=== PATIENT | female | born 1965 | race Caucasian/White ===

== ENCOUNTER 2017-02-28 01:52 | Emergency (ER) | payer BC, OTHER ==
[2017-02-28 01:59] VITALS: BP 107/68
[2017-02-28] MEDS ORDERED: Lidocaine 1% 20 ML MDV ONE (02:45)
[2017-02-28] MEDS ORDERED: Lidocaine 1% 30 ML SDV INJECT ONE (03:00)
[2017-02-28] MEDS ORDERED: cefTRIAXone 1 GM Vial IVPUSH ONE (03:49)
[2017-02-28] MEDS ORDERED: Diphtheria,Pertussis(Acell),Tetanus Vaccine 0.5 ML Syringe IM ONE (03:50)
--- NOTE | 2017-02-28 03:59 | EDM.PDOC ---
ED HPI GENERAL MEDICAL PROBLEM - General Chief Complaint: Trauma Stated Complaint: FALL APPROX 4FT Time Seen by Provider: 02/28/17 02:36 Source of Information: Reports: Patient History Limitations: Reports: No Limitations - History of Present Illness INITIAL COMMENTS - FREE TEXT/NARRATIVE: VICTOR MANUEL IS A 51 YO FEMALE WHO PRESENTS TO THE ER WITH COMPLAINTS OF NASAL TRAUMA. SHE STATES AROUND 1 OCLOCK THIS MORNING SHE WAS PAINTING IN A RENTAL HOUSE AND SLIPPED ON THE STEPS. SHE FELL FORWARD AND FELL 3-4 STEPS LANDING ON TO HER NOSE. DENIES ANY LOC. STATES SHE DID NOT HIT HER HEAD AND ALL THE TRAUMA WAS TO HER MOUTH AND FACE. STATES SHE FEELS A LARGE FLAP LIKE LACERATION TO THE INSIDE OF HER LOWER LIP. ADMITS TO ALCOHOL INTAKE 5-6 BEERS THIS EVENING WHILE PAINTING. HOWEVER, STATES THE CAUSE OF FALL WAS SECONDARY TO THE STEPS AND ADMITS THEY SHOULD HAVE BEEN FIXED AWHILE AGO. GCS 15 Severity: Moderate Improves with: Reports: Immobilization, Rest Worsens with: Reports: Movement Context: Reports: Other (FALL) Associated Symptoms: Denies: Confusion, Headaches Oral/Mouth Pain Score (Numeric/FACES): 8 Nose Pain Score (Numeric/FACES): 10 - Related Data Allergies Allergy/AdvReac Type Severity Reaction Status Date / Time caffeine Allergy Other Verified 02/28/17 01:53 Home Meds: Home Meds Ascorbic Acid [Vitamin C] 1,000 mg PO DAILY 02/28/17 [History] Biotin 1 tab PO DAILY 02/28/17 [History] Calcium Carbonate [Calcium] 500 mg PO DAILY 02/28/17 [History] Multivitamin [Multivitamins] 1 cap PO DAILY 02/28/17 [History] Vitamin E 1 cap PO DAILY 02/28/17 [History] Past Medical History HEENT History: Reports: Impaired 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: Musculoskeletal History: Reports: Fracture, Other (See Below) Other Musculoskeletal History: COLLAR BONE, FINGER, TOE, FOOT FXS - Past Surgical History HEENT Surgical History: Reports: Visual Female Surgical History: Reports: Section Social & Family History - Tobacco Use Smoking Status *Q: Current Every Day Smoker Years of Tobacco use: 30 Packs/Tins Daily: 1 - Caffeine Use Caffeine Use: Reports: None - Alcohol Use Days Per Week of Alcohol Use: 5 Number of Drinks Per Day: 4 Total Drinks Per Week: 20 - Recreational Drug Use Recreational Drug Use: No Review of Systems - Review of Systems Review Of Systems: See Below Constitutional: Reports: No Symptoms Eyes: Reports: No Symptoms Ears: Reports: No Symptoms Nose: Reports: Pain (CUTS TO NOSE) Mouth/Throat: Reports: Bleeding (CUT TO LOWER LIP), Lip Swelling (LOWER LIP). Denies: Tongue Swelling, Loose Teeth, Difficulty Swallowing, Painful Swallowing Respiratory: Reports: No Symptoms Cardiovascular: Reports: No Symptoms Skin: Reports: Wound (CUTS AND ABRASIONS TO NOSE), Other (ABRASION TO LEFT FOREARM) Neurological: Denies: Confusion, Dizziness, Headache, Numbness, Tingling, Trouble Speaking Psychiatric: Reports: No Symptoms ED EXAM, GENERAL - Physical Exam Exam: See Below Exam Limited By: No Limitations General Appearance: Alert, Mild Distress Eye Exam: Bilateral Eye: EOMI, PERRL Ears: Normal External Exam, Normal Canal, Hearing Grossly Normal, Normal TMs Nose: Nasal Tenderness, Nasal Deformity (SUPERFICIAL ABRASION ACROSS BRIDGE OF NOSE. 3.5CM LACERATION TO THE SUPERIOR LEFT SIDE OF NOSE. 2.5CM ABRASION ACROSS BRIDGE OF NOSE DISTALLY. ), Nasal Swelling Throat/Mouth: Normal Teeth, Normal Oropharynx, Normal Voice, No Airway Compromise, Other (1 CM x 1.5 CM FLAP LACERATION TO THE INSIDE OF THE LOWER LIP) Head: Facial Swelling, Facial Tenderness (NOSE). No: Sinus Tenderness Neck: Normal Inspection, Non-Tender, Full Range of Motion Neurological: Alert, Oriented, CN II-XII Intact, Normal Cognition, No Motor/ Sensory Deficits Psychiatric: Normal Affect, Normal Mood ED TRAUMA PROCEDURES - Laceration/Wound Repair Left Side Nose Lac/Wound Length In cm: 3.3 Appearance: Irregular Distal NVT: Neuro & Vascular Intact Anesthetic Type: Local Local Anesthesia - Lidocaine (Xylocaine): 1% Plain Local Anesthetic Volume: 2cc Skin Prep: Chlorhexidine (Hibiciens), Sterile Drape Exploration/Debridement/Repair: Wound Explored, in a Bloodless Field, Explored to Base, Minimal Debridement Closed With: Sutures Suture Size: other (5-0) # of Sutures: 4 Suture Type: Prolene, Interrupted, Simple Tetanus Status Addressed: Yes Complications: No Lower Mouth Lac/Wound Length In cm: 2.5 (1CM x 1.5CM) Appearance: Irregular Anesthetic Type: Local Local Anesthesia - Lidocaine (Xylocaine): 1% Plain Skin Prep: Saline Exploration/Debridement/Repair: Wound Explored, in a Bloodless Field, Explored to Base, Minimal Debridement Closed With: Sutures Suture Size: 4-0 # of Sutures: 4 Suture Type: Interrupted, Simple, Other (VICRYL) Tetanus Status Addressed: Yes Left Distal Nose Lac/Wound Length In cm: 1 Appearance: Other (laceration to anterior nare along nasal septum) Anesthetic Type: Local Local Anesthesia - Lidocaine (Xylocaine): 1% Plain Local Anesthetic Volume: 1cc Skin Prep: Chlorhexidine (Hibiciens) Exploration/Debridement/Repair: Wound Explored, in a Bloodless Field, Explored to Base Suture Size: other (5-0) # of Sutures: 1 Suture Type: Nylon, Interrupted, Simple Course - Vital Signs Last Recorded V/S: Last Vital Signs Temp 98.1 F 02/28/17 01:54 Pulse 81 02/28/17 01:54 Resp 18 02/28/17 01:54 BP 107/68 02/28/17 01:54 Pulse Ox 98 02/28/17 01:54 - Orders/Labs/Meds Orders: Active Orders 24 hr Category Date Time Status Vaccines to be Administered [RC] PER UNIT ROUTINE Care 02/28/17 03:50 Active Max Facial Sinus wo Cont [CT] Stat Exams 02/28/17 02:10 Taken Acetaminophen [Tylenol] Med 02/28/17 04:28 Active 650 mg PO Q4H PRN Lactated Ringers [Ringers, Lactated] 1,000 ml Med 02/28/17 04:00 Active IV ASDIRECTED Medication Orders Acetaminophen (Tylenol) 650 mg PO Q4H PRN PRN Reason: Pain Last Admin: 02/28/17 06:27 Dose: 650 mg Lactated Ringer's (Ringers, Lactated) 1,000 mls @ 250 mls/hr IV ASDIRECTED LETITIA Last Admin: 02/28/17 04:15 Dose: 250 mls/hr Meds: Medications Generic Name Dose Route Start Last Admin Trade Name Freq PRN Reason Stop Dose Admin Acetaminophen 650 mg 02/28/17 04:28 02/28/17 06:27 Tylenol PO 650 mg Q4H PRN Administration Pain Lactated Ringer's 1,000 mls @ 250 mls/hr 02/28/17 04:00 02/28/17 04:15 Ringers, Lactated IV 250 mls/hr ASDIRECTED LETITIA Administration Discontinued Medications Generic Name Dose Route Start Last Admin Trade Name Vianney PRN Reason Stop Dose Admin Ceftriaxone Sodium 1 gm 02/28/17 03:49 02/28/17 03:57 Rocephin IVPUSH 02/28/17 03:50 1 gm ONETIME ONE Administration Diphtheria/Tetanus/Acell Pertussis 0.5 ml 02/28/17 03:50 02/28/17 03:57 Adacel IM 02/28/17 03:51 0.5 ml .ONCE ONE Administration Lidocaine HCl Confirm 02/28/17 02:45 02/28/17 04:43 Xylocaine 1% Administered 02/28/17 02:46 Not Given Dose 20 ml .ROUTE .STK-MED ONE Lidocaine HCl 10 ml 02/28/17 03:00 02/28/17 03:00 Xylocaine-Mpf 1% INJECT 02/28/17 03:01 10 ml ONETIME ONE Administration Neomycin/Polymyxin/Bacitracin 1 each 02/28/17 04:04 02/28/17 04:42 Triple Antibiotic Oint TOP 02/28/17 04:05 1 each ONETIME ONE Administration - Re-Assessments/Exams Free Text/Narrative Re-Assessment/Exam: AFTER CLOSURE OF WOUNDS, WILL TRANSFER TO FLOOR FOR EXTENDED ER. IV FLUIDS AND ANTIBIOTICS TO BE GIVEN TONIGHT. TYLENOL FOR DISCOMFORT. WILL DISCUSS WITH ENT THIS MORNING IF INTERNAL FIXATION IS WARRANTED. Free Text/Narrative Re-Assessment/Exam: 02/28/17 08:[address] [place], [place] physician, [place] [facility] [place] advised allowing the swelling to decrease over the next 5 days and have her follow up with him in clinic next week. We will look at having her see Dr. Murray in clinic on Sunday. Victor Manuel is feeling well this morning. States she is having some discomfort on her nose but otherwise feeling well. She states she has been up walking and going to the bathroom without complications. She denies any headaches, visual disturbances or any other neurological concerns. Will look at discharging home at this time. Departure - Departure Time of Disposition: 08:12 Disposition: Home, Self-Care 01 Clinical Impression: Fracture of nasal bone Qualifiers: Encounter type: initial encounter Contusion of nose Qualifiers: Encounter type: initial encounter Qualified Code(s): S00.33XA - Contusion of nose, initial encounter Laceration of nose Qualifiers: Encounter type: initial encounter Qualified Code(s): S01.21XA - Laceration without foreign body of nose, initial encounter Nasal trauma Qualifiers: Encounter type: initial encounter Qualified Code(s): S09.92XA - Unspecified injury of nose, initial encounter - Discharge Information Instructions: Nasal Fracture, [id number] Referrals: PCP,None [Primary Care Provider] - Forms: ED Department Discharge Additional Instructions: 1) Will schedule appointment with Dr. Murray, ENT physician, [place] [facility] [place]. 2) Monitor for any changes as discussed, if any concerns advise returning. Any increase in swelling, difficulty breathing, fever, pain, etc... 3) Refrain from any further trauma to nose. 4) Sutures to come out next week Sunday as well. 5) Keflex 500mg BID for 7 days. - Problem List & Annotations (1) Fracture of nasal bone SNOMED Code(s): 647803758 Code(s): S02.2XXA - FRACTURE OF NASAL BONES, INIT ENCNTR FOR CLOSED FRACTURE Status: Acute Current Visit: Yes Qualifiers: Encounter type: initial encounter (2) Contusion of nose SNOMED Code(s): 59543335 Code(s): S00.33XA - CONTUSION OF NOSE, INITIAL ENCOUNTER Status: Acute Current Visit: Yes Qualifiers: Encounter type: initial encounter Qualified Code(s): S00.33XA - Contusion of nose, initial encounter (3) Laceration of nose SNOMED Code(s): 568084812 Code(s): S01.21XA - LACERATION WITHOUT FOREIGN BODY OF NOSE, INITIAL ENCOUNTER Status: Acute Current Visit: Yes Qualifiers: Encounter type: initial encounter Qualified Code(s): S01.21XA - Laceration without foreign body of nose, initial encounter (4) Nasal trauma SNOMED Code(s): 43985328 Code(s): S09.92XA - UNSPECIFIED INJURY OF NOSE, INITIAL ENCOUNTER Status: Acute Current Visit: Yes Qualifiers: Encounter type: initial encounter Qualified Code(s): S09.92XA - Unspecified injury of nose, initial encounter - Problem List Review Problem List Initiated/Reviewed/Updated: Yes - My Orders Last 24 Hours: My Active Orders 02/28/17 02:10 Max Facial Sinus wo Cont [CT] Stat 02/28/17 03:50 Vaccines to be Administered [RC] PER UNIT ROUTINE 02/28/17 04:00 Lactated Ringers [Ringers, Lactated] 1,000 ml IV ASDIRECTED 02/28/17 04:28 Acetaminophen [Tylenol] 650 mg PO Q4H PRN - Assessment/Plan Last 24 Hours: My Active Orders 02/28/17 02:10 Max Facial Sinus wo Cont [CT] Stat 02/28/17 03:50 Vaccines to be Administered [RC] PER UNIT ROUTINE 02/28/17 04:00 Lactated Ringers [Ringers, Lactated] 1,000 ml IV ASDIRECTED 02/28/17 04:28 Acetaminophen [Tylenol] 650 mg PO Q4H PRN Plan: See course.
[2017-02-28] MEDS ORDERED: Lactated Ringers 1,000 ML IV SCH (04:00)
[2017-02-28] MEDS ORDERED: Bacitracin/Neomycin/Polymyxin B Oint 0.9 GM U/D Packet TOP ONE (04:04)
[2017-02-28] MEDS ORDERED: Acetaminophen 325 MG Tab PO PRN (04:28)
== END 2017-02-28 08:40 | disposition home or self-care (01) ==
LOC: CC.ED 01:52
DX: S02.2XXA Fracture of nasal bones, initial encounter for closed fracture (principal); S01.21XA Laceration without foreign body of nose, initial encounter; S01.511A Laceration without foreign body of lip, initial encounter; F17.210 Nicotine dependence, cigarettes, uncomplicated; Z79.899 Other long term (current) drug therapy; Z23 Encounter for immunization; W10.9XXA Fall (on) (from) unspecified stairs and steps, initial encounter
CPT/HCPCS: 12014; 70486; 90471; 90715; 96361; 96374; 99284; A9270; J0696; J7120